=== PATIENT | female | born 1925 | race Caucasian/White ===

== ENCOUNTER → 2016-06-18 | Outpatient (CLI) | payer BC ==
[~2016-06-18] MED LIST: ACET-1256 PO; BISA-16 PO; BISA10SU13 RE; CALC-20 PO; CALC200T PO; DILT180C50; DILT180C50 PO; ENTA200T PO; MOML PO; MULTTAB PO; RASA1TAB PO; RIVA3CAP4 PO; SNM/25100 PO; SODIENE PR; TRAM-10 PO; WARF3TAB6 PO; WARF4TAB8 PO
[2016-06-18 09:32] LABS: INR 3.3 (0.9-1.1); PROTHROMBIN TIME (PATIENT) 36.7 SECONDS (9.0-12.0)
== END | disposition home or self-care (01) ==
LOC: C.LABFOXMH 08:44
PROVIDERS: ATTEND Internal Medicine
DX: Z51.81 Encounter for therapeutic drug level monitoring (principal); Z79.01 Long term (current) use of anticoagulants

== ENCOUNTER → 2016-07-03 | Outpatient (CLI) | payer BC ==
[2016-07-03 09:05] LABS: INR 3.4 (0.9-1.1); PROTHROMBIN TIME (PATIENT) 38.1 SECONDS (9.0-12.0)
== END | disposition home or self-care (01) ==
LOC: C.LABFOXMH 08:25
PROVIDERS: ATTEND Internal Medicine
DX: Z79.01 Long term (current) use of anticoagulants (principal)

== ENCOUNTER → 2016-07-09 | Outpatient (CLI) | payer BC ==
[2016-07-09 10:28] LABS: INR 1.8 (0.9-1.1); PROTHROMBIN TIME (PATIENT) 20.1 SECONDS (9.0-12.0)
== END | disposition home or self-care (01) ==
LOC: C.LABFOXMH 09:03
PROVIDERS: ATTEND Internal Medicine
DX: Z79.01 Long term (current) use of anticoagulants (principal); Z51.81 Encounter for therapeutic drug level monitoring

== ENCOUNTER → 2016-07-23 | Outpatient (CLI) | payer BC ==
[2016-07-23 10:40] LABS: INR 2.8 (0.9-1.1); PROTHROMBIN TIME (PATIENT) 30.8 SECONDS (9.0-12.0)
== END | disposition home or self-care (01) ==
LOC: C.LABFOXMH 10:06
PROVIDERS: ATTEND Nurse Practitioner Family
DX: Z79.01 Long term (current) use of anticoagulants (principal); Z51.81 Encounter for therapeutic drug level monitoring

== ENCOUNTER → 2016-08-20 | Outpatient (CLI) | payer BC ==
[2016-08-20 09:56] LABS: INR 2.4 (0.9-1.1); PROTHROMBIN TIME (PATIENT) 26.4 SECONDS (9.0-12.0)
== END ==
LOC: C.LABFOXMH 09:04
PROVIDERS: ATTEND Internal Medicine
DX: Z79.01 Long term (current) use of anticoagulants (principal)

== ENCOUNTER → 2016-09-17 | Outpatient (CLI) | payer BC ==
[~2016-09-17] MED LIST changes: +CHOL20007 PO; +CMD/25 PO; +FURO-85 PO; +PARO1TAB27 PO; +POTA10CA28 PO; +RIVA1DIS3 TOP
[2016-09-17 09:36] LABS: HEMATOCRIT 42.8 % (37-47); MEAN CELL VOLUME 94.7 fL (80-100); MEAN CORPUSCULAR HEMOGLOBIN 31.2 pg (25-34); MEAN CORPUSCULAR HGB CONC 32.9 g/dl (32-36); MEAN PLATELET VOLUME 10.9 fL (7.4-10.4); PLATELET COUNT 183 K/uL (130-400); RED BLOOD COUNT 4.52 M/uL (4.2-5.4); WHITE BLOOD COUNT 4.15 K/uL (4.8-10.8)
[2016-09-17 09:45] LABS: INR 1.9 (0.9-1.1); PROTHROMBIN TIME (PATIENT) 20.5 SECONDS (9.0-12.0)
[2016-09-17 09:47] LABS: ALT/SGPT 25 U/L (12-78); AST/SGOT 25 U/L (15-37); BLOOD UREA NITROGEN 23 mg/dl (7-18); BUN/CREATININE RATIO 21.3 (10-20); CALCIUM 8.9 mg/dl (8.5-10.1); CARBON DIOXIDE 29 mmol/L (21-32); CHLORIDE 107 mmol/L (98-107); GLUCOSE 106 mg/dl (70-99); POTASSIUM 4.1 mmol/L (3.5-5.1); SODIUM 141 mmol/L (136-145)
[2016-09-17 10:00] LABS: ALKALINE PHOSPHATASE 63 U/L (45-117)
== END ==
LOC: C.LABFOXDH 09:06
PROVIDERS: ATTEND Internal Medicine
DX: Z79.01 Long term (current) use of anticoagulants (principal); R41.2 Retrograde amnesia

== ENCOUNTER 2016-10-06 12:59 | Emergency (ER) | payer BC ==
[~2016-10-06] VITALS: Ht 165.1 cm; Wt 58.6 kg
[~2016-10-06 12:59] MED LIST changes: -BISA-16 PO; -BISA10SU13 RE; -CALC200T PO; -CHOL20007 PO; -CMD/25 PO; -DILT180C50; -ENTA200T PO; -FURO-85 PO; -MOML PO; -PARO1TAB27 PO; -POTA10CA28 PO; -RIVA1DIS3 TOP; -RIVA3CAP4 PO; -SODIENE PR; -TRAM-10 PO; -WARF4TAB8 PO
[2016-10-06 13:04] VITALS: TEMP 36.6; O2SAT 97; Ht 165.1 cm; Wt 58.6 kg
[2016-10-06] MEDS ORDERED: SODIUM CHLORIDE 0.9% 1000ML 1,000 ML IV STA (13:27)
[2016-10-06 13:37] LABS: BASO % 0.3 %; BASO ABS # 0.02 K/uL (0-0.2); COMPLETE YES; EOS % 0.3 %; IG% 0.1 %; LYMPH % 9.1 %; LYMPH ABS # 0.72 K/uL (1.2-3.4); MEAN CELL VOLUME 92.3 fL (80-100); MEAN CORPUSCULAR HEMOGLOBIN 31.6 pg (25-34); MEAN CORPUSCULAR HGB CONC 34.3 g/dl (32-36); MEAN PLATELET VOLUME 10.4 fL (7.4-10.4); MONO % 4.9 %; NEUT % 85.3 %; PLATELET COUNT 220 K/uL (130-400); RED BLOOD COUNT 5.09 M/uL (4.2-5.4); WHITE BLOOD COUNT 7.93 K/uL (4.8-10.8)
[2016-10-06 13:41] LABS: URINE APPEARANCE CLEAR (CLEAR); URINE BILIRUBIN NEG (NEG); URINE COLOR YELLOW; URINE NITRITE NEG (NEG); URINE SPECIFIC GRAVITY 1.019 (1.000-1.030); UROBILINOGEN NEG (NEG); ZZURINE CULT IF INDIC CATH NO
[2016-10-06 13:46] LABS: ALT/SGPT 10 U/L (12-78); AST/SGOT 17 U/L (15-37); BLOOD UREA NITROGEN 20 mg/dl (7-18); BUN/CREATININE RATIO 19.8 (10-20); CALCIUM 9.6 mg/dl (8.5-10.1); CARBON DIOXIDE 31 mmol/L (21-32); CHLORIDE 101 mmol/L (98-107); GLUCOSE 122 mg/dl (70-99); MAGNESIUM 2.2 mg/dl (1.8-2.4); POTASSIUM 4.2 mmol/L (3.5-5.1); SODIUM 138 mmol/L (136-145)
[2016-10-06 13:53] LABS: MANUAL MICROSCOPIC REQUIRED? NO; REVIEW REQ? NO
[2016-10-06 13:54] LABS: ALKALINE PHOSPHATASE 66 U/L (45-117); CKMB/CK RATIO 2.1 (0-3.0)
[2016-10-06 13:59] LABS: INR 3.3 (0.9-1.1); PARTIAL THROMBOPLASTIN RATIO 1.3; PROTHROMBIN TIME (PATIENT) 37.6 SECONDS (9.0-12.0)
[2016-10-06] MEDS ORDERED: BISA10SU13 RE (14:05)
[2016-10-06] MEDS ORDERED: SODIENE PR (14:05)
[2016-10-06] MEDS ORDERED: MOML PO (14:05)
[2016-10-06] MEDS ORDERED: CALC200T PO (14:05)
[2016-10-06] MEDS ORDERED: RIVA3CAP4 PO (14:05)
[2016-10-06] MEDS ORDERED: WARF4TAB8 PO (14:05)
--- NOTE | 2016-10-06 14:17 | DIAGNOSTIC IMAGING REPORT ---
CHEST ONE VIEW PORTABLE CLINICAL HISTORY: Weakness. Altered mental status. COMPARISON STUDY: Chest radiograph August 25, 2015. FINDINGS: Incidental note is made of an old right clavicular fracture and multiple left rib fractures. Moderate cardiomegaly is unchanged. There is no evidence of pulmonary edema. Linear left midlung opacity is unchanged and favors scarring or atelectasis. There is no consolidation to suggest pneumonia. There is no pneumothorax or pleural effusion. IMPRESSION: 1. No acute cardiopulmonary findings. 2. Stable cardiomegaly without evidence of pulmonary edema. 3. Fractures of the left seventh through 10th ribs. These are age-indeterminate but likely subacute to chronic. Electronically signed by: Abelardo Laureano M.D. 10/06/2016 2:15 PM Dictated Date/Time: 10/06/2016 2:12 PM
--- NOTE | 2016-10-06 15:57 | EMERGENCY ROOM VISIT NOTE ---
History Report prepared by Emily: Jewell Flores Under the Supervision of: Dr. Brien Galdamez D.O. First contact with patient: 13:14 Chief Complaint: CARDIAC ASSESSMENT Stated Complaint: WEAK, TIRED History of Present Illness The patient is an 89 year old female who presents to the Emergency Room with complaints of persistent weakness that began one week ago. She states that she has been feeling things are falling apart in her life. The patient states that she has a history of Parkinson's Disease for the past five years and atrial fibrillation for the past 10 years. She states that recently she has been having difficulty remembering things. The patient states that she has been feeling fatigued. She denies any chest pain or shortness of breath. Per nursing notes, the patient's doctor at [facility] did not feel comfortable giving the patient anything more for her chronic atrial fibrillation. Nursing notes report that the patient is on Diltiazem and Coumadin for her atrial fibrillation. Source of History: patient Onset: one week ago Position: other (global) Quality: other (weakness) Timing: other (persistent) Associated Symptoms: + fatigue, No SOB, No chest pain Note: Associated symptoms: difficulty remembering things Review of Systems See HPI for pertinent positives & negatives. A total of 10 systems reviewed and were otherwise negative. Past Medical & Surgical Medical Problems: (1) Hysterectomy (2) Kidney stone (3) Parkinson's disease (4) Tonsillectomy Family History Noncontributory secondary to age Social History Smoking Status: Never Smoker Alcohol Use: occasionally Marital Status: Housing Status: [facility] Occupation Status: retired Current/Historical Medications Scheduled Acetaminophen (Tylenol), 1,000 MG PO prn Bisacodyl (Biscolax), 1 SUPP RE Q48H Calcium Carbonate-Vitamin D (Calcium 600 + D), 2 TABLET PO DAILY Calcium Carbonate-Vitamin D (Oscal 500/200 D-3), 1 TAB PO BID Levodopa/Carbidopa (Sinemet 25MG/100MG), 1 TAB PO AC Magnesium Hydroxide (Milk Of Magnesia), 30 ML PO Q48H Multivitamins/Minerals (Mvi With Minerals), 1 TAB PO DAILY Rivastigmine Tartrate (Exelon), 3 MG PO BID Sodium Phosphate/Biphosphate (Fleet Enema), 1 EA MT DAILY Warfarin Sod (Jantoven), 3 MG PO 5XWK Warfarin Sod (Jantoven), 4.5 MG PO 2XWK Allergies Coded Allergies: No Known Allergies (Unverified , 10/06/16) Physical Exam Vital Signs Date Time Temp Pulse Resp B/P Pulse Ox O2 Delivery O2 Flow Rate FiO2 10/06/16 16:13 105 20 147/92 98 10/06/16 14:21 94 16 164/93 98 Room Air 10/06/16 13:10 93 10/06/16 13:04 97 Room Air 10/06/16 13:04 97 Room Air 10/06/16 13:04 36.6 95 18 164/93 98 Room Air Physical Exam CONSTITUTIONAL/VITAL SIGNS: Reviewed / noted above. GENERAL: Non-toxic in appearance. INTEGUMENTARY: Warm, dry, and [place]. HEAD: Normocephalic. EYES: without scleral icterus or trauma. ENT/OROPHARYNX: clear and moist. LYMPHADENOPATHY/NECK: Is supple without lymphadenopathy or meningismus. RESPIRATORY: Lungs clear and equal. CARDIOVASCULAR: Regular rate and rhythm. GI/ABDOMEN: Soft and nontender. No organomegaly or pulsatile mass. No rebound or guarding. Normal bowel sounds. EXTREMITIES: Warm and well perfused. BACK: No CVA tenderness. NEUROLOGICAL: Intact without focal deficits. PSYCHIATRIC: normal affect. MUSCULOSKELETAL: Normally developed with good muscle tone. Medical Decision & Procedures ER Provider Diagnostic Interpretation: X ray results and stated below per my interpretation and radiology interpretation. CHEST ONE VIEW PORTABLE CLINICAL HISTORY: Weakness. Altered mental status. COMPARISON STUDY: Chest radiograph August 25, 2015. FINDINGS: Incidental note is made of an old right clavicular fracture and multiple left rib fractures. Moderate cardiomegaly is unchanged. There is no evidence of pulmonary edema. Linear left midlung opacity is unchanged and favors scarring or atelectasis. There is no consolidation to suggest pneumonia. There is no pneumothorax or pleural effusion. IMPRESSION: 1. No acute cardiopulmonary findings. 2. Stable cardiomegaly without evidence of pulmonary edema. 3. Fractures of the left seventh through 10th ribs. These are age-indeterminate but likely subacute to chronic. Electronically signed by: Abelardo Laureano M.D. 10/06/2016 2:15 PM Dictated Date/Time: 10/06/2016 2:12 PM Laboratory Results 10/06/16 13:15 Red Blood Count 5.09, Mean Corpuscular Volume 92.3, Mean Corpuscular Hemoglobin 31.6, Mean Corpuscular Hemoglobin Concent 34.3, Mean Platelet Volume 10.4, Neutrophils (%) (Auto) 85.3, Lymphocytes (%) (Auto) 9.1, Monocytes (%) (Auto) 4.9, Eosinophils (%) (Auto) 0.3, Basophils (%) (Auto) 0.3, Neutrophils # (Auto) 6.77, Lymphocytes # (Auto) 0.72, Monocytes # (Auto) 0.39, Eosinophils # (Auto) 0.02, Basophils # (Auto) 0.02 10/06/16 13:15 Test 10/06/16 13:15 White Blood Count 7.93 K/uL (4.8-10.8) Red Blood Count 5.09 M/uL (4.2-5.4) Hemoglobin 16.1 g/dL (12.0-16.0) Hematocrit 47.0 % (37-47) Mean Corpuscular Volume 92.3 fL (80-100) Mean Corpuscular Hemoglobin 31.6 pg (25-34) Mean Corpuscular Hemoglobin Concent 34.3 g/dl (32-36) Platelet Count 220 K/uL (130-400) Mean Platelet Volume 10.4 fL (7.4-10.4) Neutrophils (%) (Auto) 85.3 % Lymphocytes (%) (Auto) 9.1 % Monocytes (%) (Auto) 4.9 % Eosinophils (%) (Auto) 0.3 % Basophils (%) (Auto) 0.3 % Neutrophils # (Auto) 6.77 K/uL (1.4-6.5) Lymphocytes # (Auto) 0.72 K/uL (1.2-3.4) Monocytes # (Auto) 0.39 K/uL (0.11-0.59) Eosinophils # (Auto) 0.02 K/uL (0-0.5) Basophils # (Auto) 0.02 K/uL (0-0.2) RDW Standard Deviation 44.6 fL (36.4-46.3) RDW Coefficient of Variation 13.1 % (11.5-14.5) Immature Granulocyte % (Auto) 0.1 % Immature Granulocyte # (Auto) 0.01 K/uL (0.00-0.02) Prothrombin Time 37.6 SECONDS (9.0-12.0) Prothromb Time International Ratio 3.3 (0.9-1.1) Activated Partial Thromboplast Time 34.1 SECONDS (21.0-31.0) Partial Thromboplastin Ratio 1.3 Urine Color YELLOW Urine Appearance CLEAR (CLEAR) Urine pH 7.0 (4.5-7.5) Urine Specific [place] 1.019 (1.000-1.030) Urine Protein NEG (NEG) Urine Glucose (UA) NEG (NEG) Urine Ketones 1+ (NEG) Urine Occult Blood NEG (NEG) Urine Nitrite NEG (NEG) Urine Bilirubin NEG (NEG) Urine Urobilinogen NEG (NEG) Urine Leukocyte Esterase NEG (NEG) Urine WBC (Auto) 0 /hpf (0-5) Urine RBC (Auto) 5-10 /hpf (0-4) Urine Hyaline Casts (Auto) 1-5 /lpf (0-5) Urine Epithelial Cells (Auto) 10-20 /lpf (0-5) Urine Bacteria (Auto) NEG (NEG) Anion Gap 6.0 mmol/L (3-11) Est Creatinine Clear Calc Drug Dose 34.3 ml/min Estimated GFR () 57.8 Estimated GFR (Non- 49.9 BUN/Creatinine Ratio 19.8 (10-20) Calcium Level 9.6 mg/dl (8.5-10.1) Magnesium Level 2.2 mg/dl (1.8-2.4) Total Bilirubin 0.6 mg/dl (0.2-1) Direct Bilirubin 0.2 mg/dl (0-0.2) Aspartate Amino Transf (AST/SGOT) 17 U/L (15-37) Alanine Aminotransferase (ALT/SGPT) 10 U/L (12-78) Alkaline Phosphatase 66 U/L (45-117) Total Creatine Kinase 80 U/L (26-192) Creatine Kinase MB 1.7 ng/ml (0.5-3.6) Creatine Kinase MB Ratio 2.1 (0-3.0) Troponin I < 0.015 ng/ml (0-0.045) Total Protein 7.7 gm/dl (6.4-8.2) Albumin 3.8 gm/dl (3.4-5.0) Lipase 158 U/L (73-393) Thyroid Stimulating Hormone (TSH) 1.800 uIu/ml (0.300-4.500) Laboratory results as stated above per my review. Medications Administered Medications (Trade) Dose Ordered Sig/Sapna Route Start Time Stop Time Status Last Admin Dose Admin Sodium Chloride (Nss 1000ml) 1,000 ml @ 250 mls/hr Q4H STAT IV 10/06/16 13:27 10/06/16 16:27 DC 10/06/16 13:39 250 MLS/HR ECG Indication: weakness Rate (beats per minute): 98 Rhythm: atrial fibrillation Findings: no acute ischemic change, no ectopy Comparison ECG Date: 01/01/13 ED Course 1314: Previous medical records were reviewed. The patient was evaluated in room C6. A complete history and physical examination was performed. 1327: Ordered Sodium Chloride 1000 ml @ 250 mls/hr IV. 1550: I reevaluated the patient and she is resting comfortably. I discussed all the exam findings with the patient and her daughter and I discussed the treatment plan. They verbalized complete understanding and agreement. The patient is ready to go home. Medical Decision Differential includes acute coronary syndrome, myocardial infarction, CVA, TIA, anemia, infection, pneumonia, UTI, pyelonephritis, poor nutrition, dehydration, electrolyte disturbance,hypoglycemia. This 89-year-old female who presents to the ED with a chief complaint of generalized weakness. After talking with the patient, it appears as though her symptoms are more likely related to depression. Details are listed above. Her workup included a chest x-ray, urinalysis, CBC and complete metabolic panel as well as cardiac enzymes EKG and INR. These tests were all unremarkable. Her INR is 3.3. She is not anemic. The patient was told the results of the tests. Her daughter was present. She will be discharged back to the [facility]. Impression Primary Impression: Malaise Additional Impressions: Depressed affect Parkinsons disease Scribe Attestation The scribe's documentation has been prepared under my direction and personally reviewed by me in its entirety. I confirm that the note above accurately reflects all work, treatment, procedures, and medical decision making performed by me. Departure Information Dispostion Home / Self-Care Referrals Antonio Gallegos (PCP) Forms IMPORTANT VISIT INFORMATION Patient Instructions My [facility] Additional Instructions Follow-up with your doctor for further care and evaluation in 1-2 days. Return to the emergency department for worsening or new symptoms or any concerns. You have been examined and treated today on an emergency basis only. This is not a substitute for, or an effort to provide, complete comprehensive medical care. It is impossible to recognize and treat all injuries or illnesses in a single emergency department visit. It is therefore important that you follow up closely with your doctor. Call as soon as possible for an appointment. Problem Qualifiers
[2016-10-06 16:13] VITALS: BP 147/92; PULSE 105; O2SAT 98
[2017-04-15] MEDS ORDERED: FURO-85 PO (18:26)
[2017-04-15] MEDS ORDERED: RIVA1DIS3 TOP (18:26)
[2017-04-15] MEDS ORDERED: CMD/25 PO (18:26)
[2017-04-15] MEDS ORDERED: PARO1TAB27 PO (18:26)
[2017-04-15] MEDS ORDERED: POTA10CA28 PO (18:26)
[2017-04-15] MEDS ORDERED: CHOL20007 PO (18:26)
== END 2016-10-06 16:13 | disposition home or self-care (01) ==
LOC: EDBD 12:59 → C.EDC 13:00
DX: R53.83 Other fatigue (principal); F32.9 Major depressive disorder, single episode, unspecified; G20 Parkinson's disease; I48.91 Unspecified atrial fibrillation; Z87.442 Personal history of urinary calculi; Z90.710 Acquired absence of both cervix and uterus; Z98.890 Other specified postprocedural states; Z79.01 Long term (current) use of anticoagulants; Z79.899 Other long term (current) drug therapy

== ENCOUNTER → 2016-10-15 | Outpatient (CLI) | payer BC ==
[~2016-10-15] MED LIST changes: +BISA-16 PO; +BISA10SU13 RE; +CALC200T PO; +CHOL20007 PO; +CMD/25 PO; +DILT180C50; -DILT180C50 PO; +ENTA200T PO; +FURO-85 PO; +MOML PO; +PARO1TAB27 PO; +POTA10CA28 PO; -RASA1TAB PO; +RIVA1DIS3 TOP; +RIVA3CAP4 PO; +SODIENE PR; +TRAM-10 PO; +WARF4TAB8 PO
[2016-10-15 11:26] LABS: INR 4.5 (0.9-1.1)
== END | disposition home or self-care (01) ==
LOC: C.LABFOXDH 09:47
PROVIDERS: ATTEND Internal Medicine
DX: I48.91 Unspecified atrial fibrillation (principal)

== ENCOUNTER → 2016-10-17 | Outpatient (CLI) | payer BC ==
[2016-10-17 11:39] LABS: INR 2.6 (0.9-1.1); PROTHROMBIN TIME (PATIENT) 28.8 SECONDS (9.0-12.0)
== END ==
LOC: C.LABFOXDH 09:23
PROVIDERS: ATTEND Internal Medicine
DX: I48.91 Unspecified atrial fibrillation (principal)

== ENCOUNTER → 2016-10-23 | Outpatient (CLI) | payer BC ==
[2016-10-23 09:16] LABS: INR 2.4 (0.9-1.1); PROTHROMBIN TIME (PATIENT) 26.7 SECONDS (9.0-12.0)
--- NOTE | 2016-10-30 13:37 | CODING QUERY NO DIAGNOSIS ---
TREATMENT RENDERED WITHOUT A DIAGNOSIS Dr. Greco Date of Service: 10/23/16 To promote full compliance with coding requirements relating to patient care, physician participation is requested in all cases of pension fund manager uncertainty. Please assist us with providing a diagnosis/symptom for the test(s) below: A diagnosis/symptom was not documented on your Order. A valid diagnosis/symptom is required to bill all insurances. Please remember that we are unable to code a diagnosis of rule out, probable, possible, questionable, or suspected. Tests that require a diagnosis: Prothrombin Time: Diagnosis: Provider Signature: Date: Thank you Fiona Falcon [employer] Information Management Once completed, please kindly fax back to [phone] For questions please call [phone]
== END | disposition home or self-care (01) ==
LOC: C.LABFOXDH 08:34
PROVIDERS: ATTEND Internal Medicine
DX: Z51.81 Encounter for therapeutic drug level monitoring (principal); Z79.01 Long term (current) use of anticoagulants

== ENCOUNTER → 2016-11-13 | Outpatient (CLI) | payer BC ==
[~2016-11-13] MED LIST changes: -CHOL20007 PO; -CMD/25 PO; -FURO-85 PO; -PARO1TAB27 PO; -POTA10CA28 PO; -RIVA1DIS3 TOP
[2016-11-13 09:59] LABS: INR 2.2 (0.9-1.1); PROTHROMBIN TIME (PATIENT) 24.2 SECONDS (9.0-12.0)
== END | disposition home or self-care (01) ==
LOC: C.LABFOXDH 09:02
PROVIDERS: ATTEND Internal Medicine
DX: I48.91 Unspecified atrial fibrillation (principal)

== ENCOUNTER → 2016-11-18 | Outpatient (CLI) | payer BC ==
[~2016-11-18] MED LIST changes: +CHOL20007 PO; +CMD/25 PO; +FURO-85 PO; +PARO1TAB27 PO; +POTA10CA28 PO; +RIVA1DIS3 TOP
[2016-11-18 11:03] LABS: BLOOD UREA NITROGEN 24 mg/dl (7-18); BUN/CREATININE RATIO 23.9 (10-20); CARBON DIOXIDE 28 mmol/L (21-32); CHLORIDE 104 mmol/L (98-107); GLUCOSE 96 mg/dl (70-99); POTASSIUM 4.1 mmol/L (3.5-5.1); SODIUM 139 mmol/L (136-145)
[2016-11-18 11:17] LABS: CALCIUM 8.8 mg/dl (8.5-10.1)
== END | disposition home or self-care (01) ==
LOC: C.LABFOXDH 08:28
PROVIDERS: ATTEND Internal Medicine
DX: R60.9 Edema, unspecified (principal)

== ENCOUNTER → 2016-12-10 | Outpatient (CLI) | payer BC ==
[~2016-12-10] MED LIST changes: -CHOL20007 PO; -CMD/25 PO; -FURO-85 PO; -PARO1TAB27 PO; -POTA10CA28 PO; -RIVA1DIS3 TOP
[2016-12-10 08:59] LABS: BLOOD UREA NITROGEN 26 mg/dl (7-18); BUN/CREATININE RATIO 19.8 (10-20); CALCIUM 8.8 mg/dl (8.5-10.1); CARBON DIOXIDE 29 mmol/L (21-32); CHLORIDE 105 mmol/L (98-107); GLUCOSE 93 mg/dl (70-99); SODIUM 139 mmol/L (136-145)
[2016-12-10 09:01] LABS: INR 2.7 (0.9-1.1); PROTHROMBIN TIME (PATIENT) 30.4 SECONDS (9.0-12.0)
== END | disposition home or self-care (01) ==
LOC: C.LABFOXDH 08:29
PROVIDERS: ATTEND Internal Medicine
DX: I50.9 Heart failure, unspecified (principal); I48.91 Unspecified atrial fibrillation

== ENCOUNTER → 2017-01-06 | Outpatient (CLI) | payer BC ==
[2017-01-06 08:50] LABS: BLOOD UREA NITROGEN 22 mg/dl (7-18); BUN/CREATININE RATIO 22.3 (10-20); CALCIUM 8.7 mg/dl (8.5-10.1); CARBON DIOXIDE 29 mmol/L (21-32); CHLORIDE 105 mmol/L (98-107); GLUCOSE 96 mg/dl (70-99); POTASSIUM 4.2 mmol/L (3.5-5.1); SODIUM 139 mmol/L (136-145)
== END ==
LOC: C.LABFOXDH 08:12
PROVIDERS: ATTEND Nurse Practitioner Family
DX: R63.5 Abnormal weight gain (principal)

== ENCOUNTER → 2017-01-07 | Outpatient (CLI) | payer BC ==
[2017-01-07 10:02] LABS: INR 3.2 (0.9-1.1); PROTHROMBIN TIME (PATIENT) 35.5 SECONDS (9.0-12.0)
== END | disposition home or self-care (01) ==
LOC: C.LABFOXDH 09:35
PROVIDERS: ATTEND Internal Medicine
DX: I48.91 Unspecified atrial fibrillation (principal)

== ENCOUNTER → 2017-01-14 | Outpatient (CLI) | payer BC ==
[2017-01-14 09:39] LABS: INR 2.8 (0.9-1.1); PROTHROMBIN TIME (PATIENT) 30.7 SECONDS (9.0-12.0)
== END | disposition home or self-care (01) ==
LOC: C.LABFOXDH 09:02
PROVIDERS: ATTEND Nurse Practitioner Family
DX: I48.91 Unspecified atrial fibrillation (principal)

== ENCOUNTER 2017-02-07 13:35 | Emergency (ER) | payer BC ==
[~2017-02-07] VITALS: Ht 165.1 cm; Wt 57.6 kg
[~2017-02-07 13:35] MED LIST changes: -BISA-16 PO; -DILT180C50; -ENTA200T PO; -TRAM-10 PO
[2017-02-07 13:46] VITALS: Ht 165.1 cm; Wt 57.6 kg
[2017-02-07] MEDS ORDERED: TRAMADOL HCL 50 MG TAB PO STA (14:09)
--- NOTE | 2017-02-07 14:31 | DIAGNOSTIC IMAGING REPORT ---
CHEST ONE VIEW PORTABLE HISTORY: Evaluate Fever/Sepsis COMPARISON: Chest 10/06/2016. FINDINGS: No pneumothorax. The lungs are hyperexpanded with apical predominant emphysematous changes. The heart remains mildly enlarged. Diffuse interstitial thickening persists. Old, healed left seventh rib fractures. Old, healed right clavicle fracture. No definite pleural effusions. IMPRESSION: Mild cardiomegaly with chronic interstitial thickening and emphysema. This is similar to the prior studies. Electronically signed by: Filippo Andrews M.D. 02/07/2017 2:30 PM Dictated Date/Time: 02/07/2017 2:24 PM
[2017-02-07] MEDS ORDERED: DILT180C50 (14:52)
[2017-02-07] MEDS ORDERED: ENTA200T PO (14:52)
[2017-02-07] MEDS ORDERED: BISA-16 PO (14:52)
[2017-02-07 14:54] LABS: BASO % 0.1 %; BASO ABS # 0.01 K/uL (0-0.2); COMPLETE YES; EOS % 0.7 %; HEMATOCRIT 39.7 % (37-47); IG% 0.2 %; LYMPH % 11.4 %; LYMPH ABS # 1.04 K/uL (1.2-3.4); MEAN CELL VOLUME 93.9 fL (80-100); MEAN CORPUSCULAR HEMOGLOBIN 31.9 pg (25-34); MEAN PLATELET VOLUME 9.4 fL (7.4-10.4); MONO % 8.3 %; NEUT % 79.3 %; PLATELET COUNT 214 K/uL (130-400); RED BLOOD COUNT 4.23 M/uL (4.2-5.4); WHITE BLOOD COUNT 9.09 K/uL (4.8-10.8)
[2017-02-07 15:11] LABS: ALT/SGPT < 6 U/L (12-78); BLOOD UREA NITROGEN 16 mg/dl (7-18); BUN/CREATININE RATIO 18.6 (10-20); CALCIUM 9.2 mg/dl (8.5-10.1); CARBON DIOXIDE 27 mmol/L (21-32); CHLORIDE 105 mmol/L (98-107); CREATININE 0.88 mg/dl (0.60-1.20); GLUCOSE 90 mg/dl (70-99); PARTIAL THROMBOPLASTIN RATIO 1.4; POTASSIUM 3.9 mmol/L (3.5-5.1); PROTHROMBIN TIME (PATIENT) 33.7 SECONDS (9.0-12.0); SODIUM 137 mmol/L (136-145)
[2017-02-07 15:16] LABS: ALKALINE PHOSPHATASE 64 U/L (45-117); AST/SGOT 17 U/L (15-37); CKMB/CK RATIO 1.7 (0-3.0)
[2017-02-07] MEDS ORDERED: TRAM-10 PO (15:28)
--- NOTE | 2017-02-07 15:29 | EMERGENCY ROOM VISIT NOTE ---
History Report prepared by Emily: Jarvis Patel Under the Supervision of: Rik CyrO. First contact with patient: 13:48 Chief Complaint: BACK PAIN Stated Complaint: BACK PAIN/FLANK PAIN History of Present Illness The patient is a 89 year old female who presents to the Emergency Room with complaints of constant upper back pain mostly on the right side starting last night. The patient states that she was doing a lot of activities yesterday, and then at night she was having this back pain. The patient denies any abdominal pain. Source of History: patient Onset: last night Position: back (upper) Timing: constant Associated Symptoms: No abdominal pain Review of Systems See HPI for pertinent positives & negatives. A total of 10 systems reviewed and were otherwise negative. Past Medical & Surgical Medical Problems: (1) Hysterectomy (2) Kidney stone (3) Parkinson's disease (4) Tonsillectomy Family History Noncontributory secondary to age Social History Smoking Status: Former Smoker Alcohol Use: occasionally Marital Status: Housing Status: residential Occupation Status: retired Current/Historical Medications Scheduled Acetaminophen (Tylenol), 1,000 MG PO prn Bisacodyl (Dulcolax), 2 TAB PO UD Levodopa/Carbidopa (Sinemet 25MG/100MG), 1 TAB PO AC Magnesium Hydroxide (Milk Of Magnesia), 30 ML PO Q48H Multivitamins/Minerals (Mvi With Minerals), 1 TAB PO DAILY Rivastigmine Tartrate (Exelon), 3 MG PO BID Sodium Phosphate/Biphosphate (Fleet Enema), 1 EA ND DAILY Warfarin Sod (Jantoven), 3 MG PO 5XWK Warfarin Sod (Jantoven), 4.5 MG PO 2XWK Scheduled PRN Tramadol (Ultram), 50 MG PO Q4H PRN for Pain Miscellaneous Medications Diltiazem Hcl Coated Beads (Cartia Xt) Entacapone (Comtan), 200 MG PO Allergies Uncoded Allergies: AMANTIDINE (Allergy, Unknown, uknown, 02/07/17) Physical Exam Vital Signs Date Time Temp Pulse Resp B/P (MAP) Pulse Ox O2 Delivery O2 Flow Rate FiO2 02/07/17 15:32 102 18 141/92 96 Room Air 02/07/17 13:46 36.9 99 18 141/92 96 Room Air 02/07/17 13:46 111 Physical Exam CONSTITUTIONAL/VITAL SIGNS: Reviewed / noted above. GENERAL: Non-toxic in appearance. INTEGUMENTARY: Warm, dry, and [place]. HEAD: Normocephalic. EYES: without scleral icterus or trauma. ENT/OROPHARYNX: clear and moist. LYMPHADENOPATHY/NECK: Is supple without lymphadenopathy or meningismus. RESPIRATORY: Lungs clear and equal. CARDIOVASCULAR: Regular rate and rhythm. GI/ABDOMEN: Soft and nontender. No organomegaly or pulsatile mass. No rebound or guarding. Normal bowel sounds. EXTREMITIES: Warm and well perfused. BACK: Mild tenderness to palpation of the thoracic paraspinal musculature with significant increase in back pain with attempts to sitting up and movement. No CVA tenderness. NEUROLOGICAL: Intact without focal deficits. PSYCHIATRIC: normal affect. MUSCULOSKELETAL: Normally developed with good muscle tone. Medical Decision & Procedures ER Provider Diagnostic Interpretation: CHEST ONE VIEW PORTABLE HISTORY: Evaluate Fever/Sepsis COMPARISON: Chest 10/06/2016. FINDINGS: No pneumothorax. The lungs are hyperexpanded with apical predominant emphysematous changes. The heart remains mildly enlarged. Diffuse interstitial thickening persists. Old, healed left seventh rib fractures. Old, healed right clavicle fracture. No definite pleural effusions. IMPRESSION: Mild cardiomegaly with chronic interstitial thickening and emphysema. This is similar to the prior studies. Electronically signed by: Filippo Andrews M.D. 02/07/2017 2:30 PM Dictated Date/Time: 02/07/2017 2:24 PM Laboratory Results 02/07/17 14:37 Red Blood Count 4.23, Mean Corpuscular Volume 93.9, Mean Corpuscular Hemoglobin 31.9, Mean Corpuscular Hemoglobin Concent 34.0, Mean Platelet Volume 9.4, Neutrophils (%) (Auto) 79.3, Lymphocytes (%) (Auto) 11.4, Monocytes (%) (Auto) 8.3, Eosinophils (%) (Auto) 0.7, Basophils (%) (Auto) 0.1, Neutrophils # (Auto) 7.21, Lymphocytes # (Auto) 1.04, Monocytes # (Auto) 0.75, Eosinophils # (Auto) 0.06, Basophils # (Auto) 0.01 02/07/17 14:37 Test 02/07/17 14:37 White Blood Count 9.09 K/uL (4.8-10.8) Red Blood Count 4.23 M/uL (4.2-5.4) Hemoglobin 13.5 g/dL (12.0-16.0) Hematocrit 39.7 % (37-47) Mean Corpuscular Volume 93.9 fL (80-100) Mean Corpuscular Hemoglobin 31.9 pg (25-34) Mean Corpuscular Hemoglobin Concent 34.0 g/dl (32-36) Platelet Count 214 K/uL (130-400) Mean Platelet Volume 9.4 fL (7.4-10.4) Neutrophils (%) (Auto) 79.3 % Lymphocytes (%) (Auto) 11.4 % Monocytes (%) (Auto) 8.3 % Eosinophils (%) (Auto) 0.7 % Basophils (%) (Auto) 0.1 % Neutrophils # (Auto) 7.21 K/uL (1.4-6.5) Lymphocytes # (Auto) 1.04 K/uL (1.2-3.4) Monocytes # (Auto) 0.75 K/uL (0.11-0.59) Eosinophils # (Auto) 0.06 K/uL (0-0.5) Basophils # (Auto) 0.01 K/uL (0-0.2) RDW Standard Deviation 47.3 fL (36.4-46.3) RDW Coefficient of Variation 13.7 % (11.5-14.5) Immature Granulocyte % (Auto) 0.2 % Immature Granulocyte # (Auto) 0.02 K/uL (0.00-0.02) Prothrombin Time 33.7 SECONDS (9.0-12.0) Prothromb Time International Ratio 3.0 (0.9-1.1) Activated Partial Thromboplast Time 37.1 SECONDS (21.0-31.0) Partial Thromboplastin Ratio 1.4 Anion Gap 5.0 mmol/L (3-11) Est Creatinine Clear Calc Drug Dose 39.0 ml/min Estimated GFR () 67.5 Estimated GFR (Non- 58.3 BUN/Creatinine Ratio 18.6 (10-20) Calcium Level 9.2 mg/dl (8.5-10.1) Total Bilirubin 0.6 mg/dl (0.2-1) Direct Bilirubin 0.2 mg/dl (0-0.2) Aspartate Amino Transf (AST/SGOT) 17 U/L (15-37) Alanine Aminotransferase (ALT/SGPT) < 6 U/L (12-78) Alkaline Phosphatase 64 U/L (45-117) Total Creatine Kinase 107 U/L (26-192) Creatine Kinase MB 1.8 ng/ml (0.5-3.6) Creatine Kinase MB Ratio 1.7 (0-3.0) Troponin I < 0.015 ng/ml (0-0.045) Total Protein 7.1 gm/dl (6.4-8.2) Albumin 3.6 gm/dl (3.4-5.0) Lipase 134 U/L (73-393) Laboratory results as stated above per my review. Medications Administered Medications (Trade) Dose Ordered Sig/Sapna Route Start Time Stop Time Status Last Admin Dose Admin Tramadol HCl (Ultram Tab) 100 mg NOW STAT PO 02/07/17 14:09 02/07/17 14:11 DC 02/07/17 14:24 100 MG ECG Indication: back/shoulder pain Rate (beats per minute): 96 Rhythm: atrial fibrillation Findings: no acute ischemic change, no ectopy ED Course 1348: Previous medical records were reviewed. The patient was evaluated in room A3. A complete history and physical examination was performed. 1409: Ultram Tab 100mg PO 1525: On reevaluation, the patient is feeling better. I discussed the results and findings with the patient. She verbalized agreement of the treatment plan. She was discharged home. Medical Decision Differential considered includes cauda equina syndrome, conus medullaris, spinal cord compression syndrome, peripheral nerve compression, fractures or subluxations, intra-abdominal pathology such as abdominal aortic aneurysm or kidney stones, muscle strain, transverse myelitis, spinal cord injury. This is an 89-year-old female who presents to the ED with a chief complaint of mid and upper back pain. The patient states that she was doing a lot of exercises during her wellness training yesterday. She states that she was exercising for about 3 hours yesterday. She states that she awoke tonight with pain all over her body but it's primarily in her upper back. Her pain is worse with movement. She denies any abdominal pains, chest pains or shortness of breath. Denies headaches. She was given Tylenol but this did not seem to help with the pain so she was sent here for evaluation. Her exam is suggestive of a musculoskeletal cause. She seems to have increased pain with sitting up and moving. She has some discomfort with palpation of the paraspinal musculatures of the thoracic spine. Rest of her exam was unremarkable. CBC is normal, INR 3 , complete metabolic panel is normal, troponin is negative, EKG shows A. fib at a rate of 96, which is chronic. Chest x-ray did not show acute disease. The patient was told the results of the test. She is felt to be stable for discharge and outpatient follow-up. She did report that the 2 Ultram was given here helped her pain. She did feel a little groggy. Medication Reconcilliation Current Medication List: was personally reviewed by me Blood Pressure Screening Patient's blood pressure: Elevated blood pressure Blood pressure disposition: Elevated BP felt to be situational Impression Primary Impression: Back pain Scribe Attestation The scribe's documentation has been prepared under my direction and personally reviewed by me in its entirety. I confirm that the note above accurately reflects all work, treatment, procedures, and medical decision making performed by me. Departure Information Dispostion Home / Self-Care Prescriptions Tramadol (Ultram) 50 Mg Tab 50 MG PO Q4H Y for Pain, #30 TAB Prov: Brien Galdamez D.O. 02/07/17 Referrals Antonio Gallegos (PCP) Forms HOME CARE DOCUMENTATION FORM, IMPORTANT VISIT INFORMATION Patient Instructions My [facility] Additional Instructions Your test results today were normal. Your pain is suspected to be musculoskeletal due to excessive activity yesterday. Ultram as prescribed. Follow-up with your doctor for further care and evaluation in 1-3 days. Return to the emergency department for worsening or new symptoms or any concerns. You have been examined and treated today on an emergency basis only. This is not a substitute for, or an effort to provide, complete comprehensive medical care. It is impossible to recognize and treat all injuries or illnesses in a single emergency department visit. It is therefore important that you follow up closely with your doctor. Call as soon as possible for an appointment.
[2017-02-07 16:26] VITALS: BP 154/98; PULSE 102; TEMP 36.9; O2SAT 94
== END 2017-02-07 16:28 | disposition home or self-care (01) ==
LOC: EDBD 13:35 → C.EDA 13:36
DX: M54.6 Pain in thoracic spine (principal); I48.91 Unspecified atrial fibrillation; G20 Parkinson's disease; Z87.440 Personal history of urinary (tract) infections; Z90.710 Acquired absence of both cervix and uterus; Z98.890 Other specified postprocedural states; Z87.891 Personal history of nicotine dependence; Z79.01 Long term (current) use of anticoagulants; Z79.899 Other long term (current) drug therapy; Z88.8 Allergy status to other drugs, medicaments and biological substances

== ENCOUNTER → 2017-02-11 | Outpatient (CLI) | payer BC ==
[~2017-02-11] MED LIST changes: +BISA-16 PO; -BISA10SU13 RE; -CALC-20 PO; -CALC200T PO; +DILT180C50; +ENTA200T PO; +TRAM-10 PO
[2017-02-11 10:00] LABS: PROTHROMBIN TIME (PATIENT) 47.6 SECONDS (9.0-12.0)
[2017-02-11 10:01] LABS: INR 4.2 (0.9-1.1)
== END | disposition home or self-care (01) ==
LOC: C.LABFOXDH 09:13
PROVIDERS: ATTEND Nurse Practitioner Family
DX: I48.91 Unspecified atrial fibrillation (principal)

== ENCOUNTER → 2017-02-24 | Outpatient (CLI) | payer BC ==
[2017-02-24 08:55] LABS: INR 2.3 (0.9-1.1); PROTHROMBIN TIME (PATIENT) 25.4 SECONDS (9.0-12.0)
== END ==
LOC: C.LABFOXDH 08:30
PROVIDERS: ATTEND Internal Medicine
DX: I48.91 Unspecified atrial fibrillation (principal)

== ENCOUNTER → 2017-03-17 | Outpatient (CLI) | payer BC ==
[2017-03-17 08:19] LABS: PROTHROMBIN TIME (PATIENT) 58.2 SECONDS (9.0-12.0)
[2017-03-17 08:20] LABS: INR 5.1 (0.9-1.1)
== END | disposition home or self-care (01) ==
LOC: C.LABFOXDH 07:45
PROVIDERS: ATTEND Internal Medicine
DX: I48.91 Unspecified atrial fibrillation (principal)